=== PATIENT | male | born 1980 | race Caucasian/White ===

== ENCOUNTER 2024-11-12 16:56 | Emergency (ER) | payer OTHER ==
[~2024-11-12] VITALS: Ht 172.7 cm; Wt 100.0 kg
[2024-11-12 17:16] VITALS: O2SAT 100
[2024-11-12] MEDS ORDERED: KEFLL21 MT (19:44)
[2024-11-12 20:42] VITALS: BP 116/76; PULSE 78; RESP 16; TEMP 37; O2SAT 96
== END 2024-11-12 20:53 | disposition home or self-care (01) ==
LOC: ER 16:56
DX: R60.9 Edema, unspecified (principal); Z90.49 Acquired absence of other specified parts of digestive tract
CPT/HCPCS: 73552; 99283; Z7610 ×3